=== PATIENT | male | born 1940 | race Caucasian/White ===

== ENCOUNTER 2018-09-09 05:24 | Day surgery (SDC) | payer OTHER ==
[~2018-09-09] VITALS: Ht 175.3 cm; Wt 100.0 kg
[2018-09-09] MEDS ORDERED: LOSA25 PO (06:19)
[2018-09-09] MEDS ORDERED: METF500C PO (06:19)
[2018-09-09] MEDS ORDERED: ASPI81CH PO (06:19)
[2018-09-09] MEDS ORDERED: ISOD40ER PO (06:20)
[2018-09-09] MEDS ORDERED: METO25ER PO (06:20)
[2018-09-09] MEDS ORDERED: CLOP75 PO (06:21)
[2018-09-09] MEDS ORDERED: Nitrostat0.4 MG SL (06:21)
[2018-09-09] MEDS ORDERED: ATOR40TA PO (06:21)
[2018-09-09] MEDS ORDERED: AMLO10 PO (06:21)
== END 2018-09-09 14:15 | disposition home or self-care (01) ==
LOC: MHTC 05:24
PROC: B2111ZZ Fluoroscopy of Multiple Coronary Arteries using Low Osmolar Contrast (ICD-10-PCS; principal; 2018-09-09)
PROC: B2121ZZ Fluoroscopy of Single Coronary Artery Bypass Graft using Low Osmolar Contrast (ICD-10-PCS; principal; 2018-09-09)
DX: I25.118 Atherosclerotic heart disease of native coronary artery with other forms of angina pectoris (principal); I25.718 Atherosclerosis of autologous vein coronary artery bypass graft(s) with other forms of angina pectoris; E78.00 Pure hypercholesterolemia, unspecified; I10 Essential (primary) hypertension
CPT/HCPCS: 93455; 99152; 99153; C1769; C1894; J1644; J2250; J3010; J7030; Q9967

== ENCOUNTER 2019-07-10 16:51 | Observation (INO) | payer OTHER ==
[~2019-07-10] VITALS: Ht 175.3 cm; Wt 92.0 kg
[~2019-07-10 16:51] MED LIST: AMLO10 PO; ATOR40TA PO; Aspir 8181 MG PO; CLOP75 PO; Isosorbide Mono60 MG PO; LOSA25 PO; METO25ER PO; Metformin HCl850 MG PO; Nitrostat0.4 MG SL
[2019-07-10 17:56] LABS: BASOPHILS ABSOLUTE AUTO 0.03 K/mm3 (0.00-0.23); BASOPHILS PERCENT AUTO 0 % (0-2); EOSINOPHILS ABSOLUTE AUTO 0.13 K/mm3 (0.00-0.68); EOSINOPHILS PERCENT AUTO 1 % (0-6); Hematocrit 35.1 % (37.0-53.0); Hemoglobin 11.5 g/dL (13.5-17.5); IMMATURE GRAN ABSOLUTE AUTO 0.04 K/mm3 (0.00-0.10); IMMATURE GRAN PERCENT AUTO 0 % (0-1); LYMPHOCYTES ABSOLUTE AUTO 2.27 K/mm3 (0.84-5.20); LYMPHOCYTES PERCENT AUTO 20 % (21-46); MONOCYTES ABSOLUTE AUTO 0.96 K/mm3 (0.16-1.47); MONOCYTES PERCENT AUTO 8 % (4-13); Mean Corpuscular HGB 30.1 pg (26.0-34.0); Mean Corpuscular HGB Conc 32.8 g/dL (31.5-36.5); Mean Corpuscular Volume 92 fL (80-100); NEUTROPHILS ABSOLUTE AUTO 7.95 K/mm3 (1.96-9.15); NEUTROPHILS PERCENT AUTO 70 % (41-73); Platelet Count 184 K/mm3 (150-400); Red Blood Cell Count 3.82 M/mm3 (4.30-5.90); White Blood Cell Count 11.38 K/mm3 (4.00-11.30)
[2019-07-10] MEDS ORDERED: FISH OIL 1,001000 MG PO (17:56)
[2019-07-10] MEDS ORDERED: OSTEO BI-FLEX1 EACH PO (17:57)
[2019-07-10 18:22] LABS: Troponin I <0.015 ng/mL (0.000-0.040)
[2019-07-10 18:34] LABS: Alanine Aminotransfer (ALT/SGP 13 U/L (12-78); Albumin, Blood 3.1 g/dL (3.4-5.0); Albumin/Globulin Ratio 0.9 (0.8-1.8); Alk Phos 56 U/L (50-136); Anion Gap 7 mmol/L (6-16); Aspartate Aminotrans (AST/SGOT 10 U/L (12-37); Bilirubin, Total 0.6 mg/dL (0.1-1.0); Blood Urea Nitrogen 21 mg/dL (8-24); Bun/Creatinine Ratio 14.9 (12.0-20.0); CO2, Blood 26 mmol/L (21-32); Calcium, Blood 8.6 mg/dL (8.5-10.1); Chloride, Blood 110 mmol/L (98-108); Creatinine, Blood 1.41 mg/dL (0.60-1.20); Globulin, Blood 3.4 g/dL (2.2-4.0); Glomerular Filtration Rate 52 (60-); Glucose, Blood 144 mg/dL (70-99); Potassium, Blood 4.5 mmol/L (3.5-5.5); Sodium, Blood 143 mmol/L (136-145); Total Protein, Blood 6.5 g/dL (6.4-8.2)
[2019-07-10] MEDS ORDERED: THERA1 EACH PO (20:01)
[2019-07-10] MEDS ORDERED: FLAX PO (20:02)
[2019-07-11 01:04] LABS: Hematocrit 34.5 % (37.0-53.0); Hemoglobin 11.4 g/dL (13.5-17.5)
[2019-07-11 01:20] LABS: Bun/Creatinine Ratio 16.4 (12.0-20.0); Calcium, Blood 8.5 mg/dL (8.5-10.1); Creatinine, Blood 1.28 mg/dL (0.60-1.20); Potassium, Blood 4.1 mmol/L (3.5-5.5)
--- NOTE | 2019-07-11 05:31 | NUR ---
END OF SHIFT ADRIÁNAMMERLINE PT TO PCU FROM ED. INDEPENDENT IN ROOM. AXO. DENIES ANY PAIN. STATES FEELING FINE. PT STATES HAVING NOT HAD BM SINCE BLOODY BM INSTANCE THE PREVIOUS NIGHT. VSS. PT PLACED ON PROTONIX GTT AND IV FLUIDS. BOWEL CARE STARTED ORDERED, BOWEL PREP GOLYTELY STARTED @[address] BOB. PT ATTEMPTING TO COMPLETE AT LEAST 80Z AN HOUR STATED ON PACKAGING. CALL LIGHT WITHIN REACH. USES APPROPRIATELY. WILL CONTINUE TO MONITOR PT UNTIL SHIFT CHANGE.
[2019-07-11 07:02] LABS: Hematocrit 39.2 % (37.0-53.0); Hemoglobin 13.4 g/dL (13.5-17.5)
--- NOTE | 2019-07-11 08:00 | NUR ---
pt laying in bed awake a/ox3, pleasant and cooperative with care, is prepping for a scope today, and is most done with it, frequent trips to bathroom. iv infusing ns at 75mls/hr, ordered another liter, also protonix gtt. pt has no complaints at this time, offered a bsc he declined. call light in reach.
--- NOTE | 2019-07-11 12:30 | NUR ---
07/11/19 1230 DanielAlfredo PATIENT DETERMINED TO BE ASA APPROPRIATE FOR PROPOFOL SEDATION PRIOR TO START OF PROCEDURE BY . 3-LEAD EKG REVIEWED WITH PHYSICIAN PRIOR TO START OF PROCEDURE.Patient to ENDO 1History, Chart, Medications and Allergies reviewed before start of procedure.MONITOR INTACT WITH CONTINUOUS PULSE OXIMETRY AND INTERMITTENT BP.O2 VIA N/C INTACT THROUGHOUT SEDATION/PROCEDURE.
--- NOTE | 2019-07-11 14:01 | NUR ---
pt returned to room after egd, he is awake, states he is ready to go home, called his and told her he is ready. she is here. placed orders per Dr. Cordova for f.l. diet. maryam billings, spoke with and she will write for discharge in a bit. call light in reach.
--- NOTE | 2019-07-11 15:41 | NUR ---
pt has been discharged to home, no new medications to call in, will f/u as needed, iv's removed intact. he verbalizes understanding of instructions and has all his belongings. left via wheelchair with compound coating machine offbearer and in attendence.
--- NOTE | 2019-07-11 15:52 | NUR ---
Advance Directive Education attempted. Upon receiving an admit referral for advance directive education, I entered patient's room. Patient said I have no interest and have one already filled out at the [facility] Patient is discharging as I leave room.
== END 2019-07-11 16:28 | disposition home or self-care (01) ==
LOC: ER 16:51 → PCU 16:52
PROVIDERS: Emergency Medicine; Internal Medicine Gastroenterology; ADMIT Internal Medicine
PROC: 0DBK8ZZ Excision of Ascending Colon, Via Natural or Artificial Opening Endoscopic (ICD-10-PCS; principal; 2019-07-11 12:30)
DX: D12.2 Benign neoplasm of ascending colon (principal); D62 Acute posthemorrhagic anemia; K64.8 Other hemorrhoids; K57.30 Diverticulosis of large intestine without perforation or abscess without bleeding; I25.10 Atherosclerotic heart disease of native coronary artery without angina pectoris; I10 Essential (primary) hypertension; E11.9 Type 2 diabetes mellitus without complications; E78.5 Hyperlipidemia, unspecified; Z95.1 Presence of aortocoronary bypass graft; Z87.891 Personal history of nicotine dependence; Z88.8 Allergy status to other drugs, medicaments and biological substances; Z79.899 Other long term (current) drug therapy; Z79.82 Long term (current) use of aspirin; Z79.02 Long term (current) use of antithrombotics/antiplatelets; Z79.84 Long term (current) use of oral hypoglycemic drugs
CPT/HCPCS: 36415; 80048; 80053; 82947; 84484; 85014; 85018; 85025; 88305; 93005; 93010; 96374; 96376; 99285-25; C9113; G0378; J2704; J7030; J7120

== ENCOUNTER 2019-07-13 19:16 | Inpatient (IN) | payer MEDICARE ==
[~2019-07-13] VITALS: Ht 175.3 cm; Wt 96.1 kg
[~2019-07-13 19:16] MED LIST changes: +FISH OIL 1,001000 MG PO; +FLAX PO; +OSTEO BI-FLEX1 EACH PO; +THERA1 EACH PO
[2019-07-13 19:39] LABS: BASOPHILS ABSOLUTE AUTO 0.01 K/mm3 (0.00-0.23); BASOPHILS PERCENT AUTO 0 % (0-2); EOSINOPHILS ABSOLUTE AUTO 0.11 K/mm3 (0.00-0.68); EOSINOPHILS PERCENT AUTO 1 % (0-6); Hemoglobin 8.3 g/dL (13.5-17.5); IMMATURE GRAN ABSOLUTE AUTO 0.05 K/mm3 (0.00-0.10); IMMATURE GRAN PERCENT AUTO 0 % (0-1); LYMPHOCYTES ABSOLUTE AUTO 2.01 K/mm3 (0.84-5.20); LYMPHOCYTES PERCENT AUTO 16 % (21-46); MONOCYTES ABSOLUTE AUTO 0.97 K/mm3 (0.16-1.47); MONOCYTES PERCENT AUTO 8 % (4-13); Mean Corpuscular HGB 31.2 pg (26.0-34.0); Mean Corpuscular HGB Conc 33.2 g/dL (31.5-36.5); Mean Corpuscular Volume 94 fL (80-100); Mean Platelet Volume 11.2 fL (9.1-12.4); NEUTROPHILS ABSOLUTE AUTO 9.33 K/mm3 (1.96-9.15); NEUTROPHILS PERCENT AUTO 75 % (41-73); Platelet Count 190 K/mm3 (150-400); RDW Coefficient Variation 14.2 % (11.7-14.2); RDW Standard Deviation 48.1 fL (35.1-46.3); Red Blood Cell Count 2.66 M/mm3 (4.30-5.90); White Blood Cell Count 12.48 K/mm3 (4.00-11.30)
[2019-07-13 19:54] LABS: Albumin, Blood 3.2 g/dL (3.4-5.0); Bilirubin, Total 0.5 mg/dL (0.1-1.0); Bun/Creatinine Ratio 16.3 (12.0-20.0); Calcium, Blood 8.8 mg/dL (8.5-10.1); Creatinine, Blood 1.84 mg/dL (0.60-1.20); Globulin, Blood 3.3 g/dL (2.2-4.0); Potassium, Blood 4.2 mmol/L (3.5-5.5); Total Protein, Blood 6.5 g/dL (6.4-8.2); Troponin I 0.25 ng/mL (0.000-0.040)
[2019-07-13 20:36] LABS: International Normalized Ratio 1.02; Prothrombin Time Results 10.8 Sec (9.7-11.5)
[2019-07-13] MEDS ORDERED: Fluorouracil10 M1 TOP (20:41)
[2019-07-13 22:11] LABS: Hematocrit 21.3 % (37.0-53.0); Hemoglobin 7.3 g/dL (13.5-17.5)
[2019-07-13 22:26] LABS: Calcium, Blood 8.1 mg/dL (8.5-10.1); Creatinine, Blood 1.58 mg/dL (0.60-1.20); Magnesium, Blood 1.8 mg/dL (1.6-2.4)
--- NOTE | 2019-07-13 23:12 | NUR ---
PT TO ROOM AT 2242. HOSPITALIST AT BEDSIDE. BLOOD STARTED STAT. PT PLEASANT AND CONVERSIVE. PT RATE CP 4/10 UPON ARRIVAL, CURRENTLY 11/24. PT SLIGHTLY HYPOTENSIVE UPON ARRIVAL. BOLUS LR STARTED. ORDER TO HOLD NYTROGLYCERIN FOR NOW.
[2019-07-14 00:18] LABS: Hematocrit 29.5 % (37.0-53.0); Hemoglobin 9.5 g/dL (13.5-17.5); Mean Platelet Volume 11.3 fL (9.1-12.4); Platelet Count 164 K/mm3 (150-400)
[2019-07-14 00:19] LABS: BASOPHILS ABSOLUTE AUTO 0.04 K/mm3 (0.00-0.23); BASOPHILS PERCENT AUTO 0 % (0-2); EOSINOPHILS ABSOLUTE AUTO 0.11 K/mm3 (0.00-0.68); EOSINOPHILS PERCENT AUTO 1 % (0-6); Hematocrit 28.9 % (37.0-53.0); Hemoglobin 9.4 g/dL (13.5-17.5); IMMATURE GRAN ABSOLUTE AUTO 0.31 K/mm3 (0.00-0.10); IMMATURE GRAN PERCENT AUTO 2 % (0-1); LYMPHOCYTES ABSOLUTE AUTO 3.09 K/mm3 (0.84-5.20); LYMPHOCYTES PERCENT AUTO 19 % (21-46); MONOCYTES ABSOLUTE AUTO 1.24 K/mm3 (0.16-1.47); MONOCYTES PERCENT AUTO 8 % (4-13); Mean Corpuscular HGB 30.2 pg (26.0-34.0); Mean Corpuscular HGB Conc 32.5 g/dL (31.5-36.5); Mean Corpuscular Volume 93 fL (80-100); Mean Platelet Volume 11.3 fL (9.1-12.4); NEUTROPHILS ABSOLUTE AUTO 11.65 K/mm3 (1.96-9.15); NEUTROPHILS PERCENT AUTO 71 % (41-73); NRBC ABSOLUTE 0.02 K/mm3 (0.00-0.02); NRBC Auto 0.1 /100 WBC (0.0-0.2); Platelet Count 166 K/mm3 (150-400); RDW Coefficient Variation 14.4 % (11.7-14.2); RDW Standard Deviation 48.4 fL (35.1-46.3); RETICULOCYTE ABSOLUTE 0.0718 M/mm3 (0.0200-0.1100); RETICULOCYTE COUNT PERCENT 2.31 % (0.50-2.50); Red Blood Cell Count 3.11 M/mm3 (4.30-5.90); White Blood Cell Count 16.44 K/mm3 (4.00-11.30)
[2019-07-14 00:34] LABS: International Normalized Ratio 1.08; Prothrombin Time Results 11.4 Sec (9.7-11.5)
[2019-07-14 00:37] LABS: Albumin, Blood 2.7 g/dL (3.4-5.0); Bilirubin, Total 0.5 mg/dL (0.1-1.0); Bun/Creatinine Ratio 16.7 (12.0-20.0); Calcium, Blood 7.9 mg/dL (8.5-10.1); Creatinine, Blood 1.68 mg/dL (0.60-1.20); Globulin, Blood 2.8 g/dL (2.2-4.0); Potassium, Blood 4.2 mmol/L (3.5-5.5); Total Protein, Blood 5.5 g/dL (6.4-8.2)
[2019-07-14 00:44] LABS: PCO2 Arterial 34.3 mmHg (35-45); PO2 Arterial 268 mmHg (80-100); pH Blood Arterial 7.34 (7.35-7.45)
[2019-07-14 00:45] LABS: Source, Urine Catheter
[2019-07-14 00:50] LABS: Bilirubin, Urine Neg (Neg); Blood, Urine 2+ (Neg); Glucose Qualitative, Urine 3+ (Neg); Ketones, Urine 1+ (Neg); Leukocyte Esterase, Urine Neg (Neg); Nitrite, Urine Neg (Neg); Protein, Urine 2+ (Neg); Urobilinogen, Urine NORM (Normal)
[2019-07-14 00:57] LABS: Amorphous Mod ({null, 0-Heavy}); Appearance, Urine Hazy (Clear); Bacteria Rare /hpf; Color, Urine Yellow (P-Yellow); Red Blood Cells, Urine 0-2 /hpf (0-2); Squamous Epithelial Cells Rare /hpf (Few); Transitional Epithelial Cells Few /hpf ({null, 0-Rare}); White Blood Cells, Urine Rare /hpf (0-5)
--- NOTE | 2019-07-14 03:30 | NUR ---
PT ARRIVED TO ICU ROOM 12 FROM [facility] AT APPRX 2242. PT AWAKE A+O, PLEASANT AND JOKING WITH STAFF. PT RATED CP AT THAT TIME 4/10 FROM A PREVIOUS 10. PT DESCRIBED THE PAIN , "JUST A PAIN". [facility] STAFF STATED PT WAS GIVEN HEPARIN 5000u, NS 250mL, VERSED 1mg, AND FENTANYL 75mcg. PT WITH TR BAND IN PLACE WITH STATED 10cc AIR INSTILLED IN CUFF; R GROIN WITH SHEATH STILL IN PLACE. R GROIN SITE FREE OF ANY BRUISING AND/OR DRAINAGE. PT PULSES VERIFIED WITH [facility] STAFF VERIFYING THAT PT WITH NO DETECTABLE PULSE TO LEFT WRIST R/T HX OF VESSEL GRAFTING. HOSPITALIST AT BEDSIDE UPON PT ARRIVAL AND SPOKE WITH PT EXTENSIVELY ABOUT CURRENT SITUATION AND POSSIBLE TRANSFER OUT TO ANOTHER FACILITY FOR GI CARE. PT AT BEDSIDE AT THAT TIME. PT ARRIVED WITH NTG gtt INFUSING AT 30mcg/min. HOSPITALIST ORDERED THAT TWO UNITS OF BLOOD BE GIVEN "STAT" AND TO BEGIN LR FLUID BOLUS. MAG SULFATE STARTED AT THAT TIME. PT NEEDING OTHER IV SITE-DONIS NEUROPSYCHIATRIST AND JAE RN ATTEMPTED IV SITE. AT APPROXIMATELY 2318, PT BECAME LETHARGIC AND STATED HE DIDN'T FEEL VERY WELL. PT WENT INTO VFIB WITH NO PULSE. CPR STARTED. SEE CODE SHEET FOR INFORMATION DURING CODE.
--- NOTE | 2019-07-14 03:44 | NUR ---
PT RETURNED FROM CT AT 0144. PT TAKEN TO CT WITH TWO RNS AND RT AT BEDSIDE AND ON DIESEL INSTRUCTOR. PT TOLERATED WELL.
--- NOTE | 2019-07-14 03:45 | NUR ---
RIGHT GROIN SITE SHEAT REMOVED AT 0225. USING ASCEPTIC TECHNIQUE, RIGHT FEMORAL PULSE DETECTED, 4cc BLOOD ASPIRATED INTO ATTACHED SYRINGE, PRESSURE APPLIED APPRX 2cm ABOVE SHEATH ENTRY SITE, SHEATH PULLED ON PT EXPIRATION. PRESSURE HELD FOR 20 MINUTES. NO BRUISING, SWELLING, OR DRAINAGE NOTED. ESSIE DRESSING AND TEGADERM APPLIED IN A PRESSURE-DRESSING FASION AT 0245. SITE ASSESSED FREQUENTLY AND CONTINUES SAME WITH NO BRUISING, SWELLING, OR DRAINAGE NOTED. TR BAND ASSESSED AT 0247 AND HAD 5cc REMAINING IN CUFF. 1cc REMOVED, TR BAND AND ARM BOARD REMAIN IN PLACE.
--- NOTE | 2019-07-14 03:51 | NUR ---
PT'S SPOUSE, JANKI, CONSOLED AND UPDATED DURING CODE BY ANGELIA KIMBALL. JANKI REMAINS AT BEDSIDE AND HAS BEEN FREQUENTLY UPDATED WITH ALL QUESTIONS ANSWERED.
--- NOTE | 2019-07-14 03:52 | NUR ---
CURRENT INFUSIONS: AMIODARONE AT THE INITIAL 1mg/min; PROPOFOL 55mcg/kg/min; 4TH unit OF PRBC; PROTONIX gtt; AND NS MAINTENANCE AT 125mL/hr.
[2019-07-14 04:45] LABS: PCO2 Arterial 36.3 mmHg (35-45); PO2 Arterial 54.6 mmHg (80-100); pH Blood Arterial 7.39 (7.35-7.45)
[2019-07-14 04:58] LABS: Hemoglobin 10.1 g/dL (13.5-17.5)
[2019-07-14 05:17] LABS: Albumin, Blood 2.7 g/dL (3.4-5.0); Bilirubin, Total 1.1 mg/dL (0.1-1.0); Bun/Creatinine Ratio 16.9 (12.0-20.0); Calcium, Blood 8.1 mg/dL (8.5-10.1); Creatinine, Blood 1.54 mg/dL (0.60-1.20); Globulin, Blood 2.6 g/dL (2.2-4.0); Magnesium, Blood 2.2 mg/dL (1.6-2.4); Total Protein, Blood 5.3 g/dL (6.4-8.2)
--- NOTE | 2019-07-14 05:20 | NUR ---
TR BAND REMOVED. R RADIAL SITE C/ NO BRUISING, SWELLING, OR DRAINAGE NOTED. TEGADERM DRESSING DCI. R GROIN SITE REMAINS WITHOUT BRUISING, SWELLING, OR DRAINAGE. VENT SETTING: A/C 16, Vt 500, PEEP 5.0, FiO2 65% CHANGED TO 70%.
--- NOTE | 2019-07-14 07:23 | NUR ---
ASSUMED CARE REPORT FROM BENNY Berrios RN. INTUBATED, RESTRAINED PATIENT SEDATED ON 65 MCG/KG/MIN PROPOFOL. TITRATED TO 50 MCG/KG/MIN. 8.0 ETT 26 ATLAC 16 Vt 500 PEEP 5 FIO2 70% RIGHT GROIN SOFT TO PALP, NO SIGN OF BLEEDING OR HEMATOMA. LEFT FEMORAL CL. RIGHT RADIAL SITE. OCCASIONAL ECTOPY NOTED ON MONITOR.
--- NOTE | 2019-07-14 07:58 | NUR ---
DR. YOU CALLED TO CHECK ON PATIENT. ORDERS WILL FOLLOW
--- NOTE | 2019-07-14 08:26 | NUR ---
PROPOFOL TITRATED TO 40 MCG/KG/MIN. RIGHT RADIAL SITE IS CLEAR, NO SIGN OF BLEEDING OR HEMATOMA
[2019-07-14 09:11] LABS: Hematocrit 30.6 % (37.0-53.0); Hemoglobin 10.4 g/dL (13.5-17.5)
--- NOTE | 2019-07-14 09:26 | NUR ---
VISITS DR. BOSWELL IN. ORDERS TO KEEP H BETWEEN 9.5-10. PRN H/H, MG & K FOR INCREASED ECTOPY. DR. SCHWARTZ IN AND DR. LEON IN.
--- NOTE | 2019-07-14 09:29 | NUR ---
FAMILY VISIT SON AND GRANDSON AT BEDSIDE
--- NOTE | 2019-07-14 09:38 | NUR ---
Echocardiogram completed.
--- NOTE | 2019-07-14 10:06 | NUR ---
BLOOD DRAWN FOR NUC MED STUDY. WILL TRANSPORT TO NUC MED WITH [facility] 20 MIN AFTER THE DRAW
--- NOTE | 2019-07-14 10:26 | NUR ---
CXR REPEATED FOR ETT PLACEMENT. AT [facility] AT THIS TIME FOR RED TAG STUDY. ANTICIPATED TIME IS 1 HOUR.
--- NOTE | 2019-07-14 10:52 | NUR ---
Met briefly with for supportive visit. Review of anemia care and our supportive role in symptom management and care planning. is very fatigued cant sleep and fearfull.
--- NOTE | 2019-07-14 12:07 | NUR ---
RETURNED FROM [facility]. DR. MERA UPDATING FAMILY
--- NOTE | 2019-07-14 12:08 | NUR ---
ORDER TO ADVANCE ETT 3CM AND OGT 5CM
[2019-07-14 13:13] LABS: Hematocrit 30.8 % (37.0-53.0); Hemoglobin 10.4 g/dL (13.5-17.5)
--- NOTE | 2019-07-14 13:20 | NUR ---
DR MERA CHANGED PEEP TO 7 AND FIO2 TO 50%
[2019-07-14 13:30] LABS: Calcium, Blood 8.3 mg/dL (8.5-10.1); Creatinine, Blood 1.53 mg/dL (0.60-1.20); Potassium, Blood 3.9 mmol/L (3.5-5.5)
[2019-07-14 17:25] LABS: Hemoglobin 10.4 g/dL (13.5-17.5)
--- NOTE | 2019-07-14 17:28 | NUR ---
MD VISIT DR. YOU IN. NO SIGN OF BLEEDING.
--- NOTE | 2019-07-14 17:38 | NUR ---
AT BEDSIDE UPDATED BY DR. YOU. H/H REMAINS STABLE. PROPOFOL AT 40 MCG/KG/MIN. AMIODARONE CONTINUES UNTIL 29. TURNED Q2, ORAL CARE Q4. HEELS FLOATED
--- NOTE | 2019-07-14 18:17 | NUR ---
OGT SHOWING PINKWITH STOMACH CONTENTS. LIS TURNED OF PER DR. OYU.
--- NOTE | 2019-07-14 19:00 | NUR ---
Lamar of Care: Patient intubated/sedated. Ventilator to AC-16/500/7/40%, O2-95%, VSS, tolerating ventilator without difficulty. Sedated with propofol at 40mcg/kg/min, appears calm and comfortable, responds to noxious stimuli. Central line to lt femoral vein patent and intact, infusing medications without difficulty. Peripheral IV's x2 to bilateral AC's patent and intact, saline locked at this time. Arterial access sites to rt radial, and rt femoral, both sites wnl, no s/s of active bleeding/hematoma. Amiodarone gtt infusing at 0.5mg/hr, heart rhythm shows NSR in the 60's-70's. Enrique cath patent and intact, draining clear yellow urine. Temp-probe Enrique, shows temp of 101.3, ice pack applied at this time, plan to ask Dr. Mora for prn tylenol PT. Will continue to monitor for pain, safety, comfort.
--- NOTE | 2019-07-14 19:25 | NUR ---
NOTIFIED DR. MERA OF FEVER 101.3. STAT BLOOD CULTURES AND 1 GRAM CEFTRIAXONE
--- NOTE | 2019-07-14 19:32 | NUR ---
REPORT TO REHANA FLOOD
[2019-07-14 21:35] LABS: Hematocrit 30.9 % (37.0-53.0); Hemoglobin 10.6 g/dL (13.5-17.5)
[2019-07-15 02:38] LABS: Hemoglobin 10.6 g/dL (13.5-17.5)
[2019-07-15 03:54] LABS: BASOPHILS ABSOLUTE AUTO 0.03 K/mm3 (0.00-0.23); BASOPHILS PERCENT AUTO 0 % (0-2); EOSINOPHILS ABSOLUTE AUTO 0.11 K/mm3 (0.00-0.68); EOSINOPHILS PERCENT AUTO 1 % (0-6); Hematocrit 32.4 % (37.0-53.0); Hemoglobin 10.8 g/dL (13.5-17.5); IMMATURE GRAN ABSOLUTE AUTO 0.08 K/mm3 (0.00-0.10); IMMATURE GRAN PERCENT AUTO 0 % (0-1); LYMPHOCYTES ABSOLUTE AUTO 1.25 K/mm3 (0.84-5.20); LYMPHOCYTES PERCENT AUTO 7 % (21-46); MONOCYTES ABSOLUTE AUTO 2.12 K/mm3 (0.16-1.47); MONOCYTES PERCENT AUTO 12 % (4-13); Mean Corpuscular HGB 30.7 pg (26.0-34.0); Mean Corpuscular HGB Conc 33.3 g/dL (31.5-36.5); Mean Corpuscular Volume 92 fL (80-100); Mean Platelet Volume 11.4 fL (9.1-12.4); NEUTROPHILS ABSOLUTE AUTO 14.88 K/mm3 (1.96-9.15); NEUTROPHILS PERCENT AUTO 81 % (41-73); Platelet Count 134 K/mm3 (150-400); RDW Coefficient Variation 15.6 % (11.7-14.2); RDW Standard Deviation 51.3 fL (35.1-46.3); Red Blood Cell Count 3.52 M/mm3 (4.30-5.90); White Blood Cell Count 18.47 K/mm3 (4.00-11.30)
[2019-07-15 04:45] LABS: Bun/Creatinine Ratio 12.8 (12.0-20.0); Calcium, Blood 8.3 mg/dL (8.5-10.1); Creatinine, Blood 1.48 mg/dL (0.60-1.20); Magnesium, Blood 1.8 mg/dL (1.6-2.4); Potassium, Blood 3.9 mmol/L (3.5-5.5)
--- NOTE | 2019-07-15 06:20 | NUR ---
Shift Summary: Remains intubated/sedated, responding to noxious stimuli. Ventilator to AC-14/500/7/40-65%. FiO2 increased throughout shift r/t O2-87-89%, some improvement seen after repositioning and suctioning of ETT. Moderate amount of thick brown/blood tinged sputum noted. No spontaneous breathing trial this shift r/t increased FiO2 demands and increased respiratory rate (30's) when sedation decreased. X3 doses of prn fentanyl given for s/s of pain, with good effect noted. At appros 0200hr, patient began having frequent 3-4 beat runs of V-tach, at that time 24hr Amiodarone gtt had completed for approx 2hr. Call placed to Dr. Massey, received orders to resume Amiodarone gtt at 0.5mg/hr, and obtain STAT H+H. Repeat H+H showed increased from endy values (10.4-10.6), and no s/s of active bleeding. Occasional single PVC's noted throughout remainder of shift. Rt radial and rt femoral access sites remain WNL, no s/s of bleeding/hematoma noted. Lt femoral central line remains patent and intact. Enrique cath remains patent and intact. Appears calm and comfortable at this time, will continue to monitor until report to day shift RN.
--- NOTE | 2019-07-15 07:13 | NUR ---
ASSUMED CARE REPORT FROM REHANA FLOOD. PT CONTINUES VENTILATED AC 16 Vt 500 PEEP 7 FI02 55% AMIODARONE GTT CONTINUES AT 0.5 MG MIN PROPOFOL 55 MCG/KG/MIN FEVER HAS ABATED TO 99.0 IN ROOM ALL NIGHT
--- NOTE | 2019-07-15 08:40 | NUR ---
MD VISITS DR. LEON AND DR. MERA BOTH IN
--- NOTE | 2019-07-15 09:38 | NUR ---
SHORT SEDATION VACATION. WAS ABLE TO FOLLOW COMMANDS AND NODDED YES TO PAIN QUERY. BIGEMINY AND TRIGEMINY NOTED ON MONITOR. AMIDODARONE REMAINS AT 0.5 RR CLIMBED TO 30'S AND BIOX DROPPED TO 87. PROPOFOL BACK ON AND FENTANYL [address] MERA CHANGED PEEP TO 8. FI02 AT 60% ORDERS FOR BIOX TO REMAIN 90 AND ABOVE.
--- NOTE | 2019-07-15 10:38 | NUR ---
MD VISIT DR. BOSWELL IN. ORDER FOR METOPROLOL 12.5 PT BID
--- NOTE | 2019-07-15 13:05 | NUR ---
PATIENT WENT INTO FREQUENT BIGEMINY. BP DROPPED SUDDENLY TO 56/35(41), DR. MERA RESPONDED TO ROOM, BOLUS STARTED, CALLED DR. BOSWELL REPEAT BP 110/55 (77). NO NEW ORDERS. BOLUS STOPPED. DR. MERA ORDERED 1 GRAM MG AND 30 MEQ POTASSIUM.
--- NOTE | 2019-07-15 16:09 | NUR ---
VITAL HP TF STARTED AT 25 ML/HR 30 ML FLUSH Q4HRS
--- NOTE | 2019-07-15 16:58 | NUR ---
CONSULTED DR. MERA RE: REDUCED URINE OUTPUT. LR 1L AT 100 ML/HR ORDERED
--- NOTE | 2019-07-15 17:33 | NUR ---
LESS ECTOPY AT THIS TIME. BIOX 96% WITH FIO2 AT 60% PEEP 8. NSR WITH ST DEPRESSION ON MONITOR. FAMILY AT BEDSIDE. ON PROPOFOL AT 40 MCG/KG/MIN. AMIODARONE AT 0.5 MG/MIN. WILL START ON PT DOSE THIS EVENING. WILL REPORT TO ONCOMING SHIFT.
--- NOTE | 2019-07-15 19:19 | NUR ---
BEDSIDE REPORT GIVEN TO EVELIN KIMBALL.
--- NOTE | 2019-07-15 20:57 | NUR ---
PT INTUBATED AND SEDATED. ON PROPOFOL FOR SEDATION. ON AMIODORONE GTT FOR ECTOPY. PT WILL RAISE EYEBROWS WHEN YOU TALK TO HIM. TOLERATING TUBE FEED AT 15ML/HR, LESS THAN 10ML RESIDUAL REFED. SEE ASSESSMENT. FAMILY AT BEDSIDE, NO REQUESTS.
[2019-07-16 03:24] LABS: BASOPHILS ABSOLUTE AUTO 0.02 K/mm3 (0.00-0.23); BASOPHILS PERCENT AUTO 0 % (0-2); EOSINOPHILS ABSOLUTE AUTO 0.16 K/mm3 (0.00-0.68); EOSINOPHILS PERCENT AUTO 1 % (0-6); Hematocrit 28.5 % (37.0-53.0); Hemoglobin 9.5 g/dL (13.5-17.5); IMMATURE GRAN ABSOLUTE AUTO 0.08 K/mm3 (0.00-0.10); IMMATURE GRAN PERCENT AUTO 1 % (0-1); LYMPHOCYTES ABSOLUTE AUTO 1.27 K/mm3 (0.84-5.20); LYMPHOCYTES PERCENT AUTO 9 % (21-46); MONOCYTES ABSOLUTE AUTO 1.68 K/mm3 (0.16-1.47); MONOCYTES PERCENT AUTO 11 % (4-13); Mean Corpuscular HGB 30.7 pg (26.0-34.0); Mean Corpuscular HGB Conc 33.3 g/dL (31.5-36.5); Mean Corpuscular Volume 92 fL (80-100); Mean Platelet Volume 11.5 fL (9.1-12.4); NEUTROPHILS ABSOLUTE AUTO 11.54 K/mm3 (1.96-9.15); NEUTROPHILS PERCENT AUTO 78 % (41-73); Platelet Count 124 K/mm3 (150-400); RDW Coefficient Variation 15.4 % (11.7-14.2); RDW Standard Deviation 50.7 fL (35.1-46.3); Red Blood Cell Count 3.09 M/mm3 (4.30-5.90); White Blood Cell Count 14.75 K/mm3 (4.00-11.30)
[2019-07-16 03:42] LABS: Bun/Creatinine Ratio 16.4 (12.0-20.0); Calcium, Blood 7.4 mg/dL (8.5-10.1); Creatinine, Blood 1.4 mg/dL (0.60-1.20); Magnesium, Blood 1.9 mg/dL (1.6-2.4); Phosphorus, Blood 3.2 mg/dL (2.5-4.9); Potassium, Blood 3.7 mmol/L (3.5-5.5)
--- NOTE | 2019-07-16 04:21 | NUR ---
EVERETT WAS LEAKING. REPLACED WITH 16F COUDE EVERETT. HAS GOOD URINE RETURN.
--- NOTE | 2019-07-16 06:15 | NUR ---
SUMMARY PT INTUBATED AND SEDATED. LIFTED SEDATION THIS AM SO COULD SEE HIM FOLLOWING COMMANDS AND TRACKING. AMIODORONE GTT WAS D/C'D. PO AMIODORONE WAS STARTED LAST NIGHT. MINIMAL ECTOPY DURING THE NIGHT. TOLERATING TUBE FEED. HAS HAD LESS THAN 10ML RESIDUAL Q4 HR. REPLACED EVERETT DUE TO IT LEAKING. PT HAD SIGNIFICANT AMT LEAK ON TO BEDDING. NO SIGN OF DISTRESS.
--- NOTE | 2019-07-16 08:15 | NUR ---
INITIAL ASSESSMENT PATIENT INTUBATED AND SEDATED UPON ENTERING ROOM. PATIENT RESPONDS TO PAINFUL STIMULI/ ORAL CARE WITH FACIAL GRIMACING. PATIENT IS NOT MOVING ANY EXTREMITIES AT THIS TIME. NO SIGNS OF PAIN NOTED. PATIENT AFEBRILE. PATIENT SATTING 90% AND GREATER ON VENT SETTINGS OF AC 16, TV 500, PEEP 8, 55% FIO2. LUNGS CLEAR THROUGHOUT TO AUSCULTATION. SMALL AMOUNT OF THICK, YEUNG/ BLOODY SPUTUM BEING SUCTIONED FROM ETT. PATIENT IN SR, HR IN THE 60S. BP STABLE. AMIO PO SCHEDULED. PULSES FAINT. GENERALIZED, NONPITTING EDEMA NOTED. SCDS IN PLACE. ABDOMEN MILDLY DISTENDED, SOFT, DOESN'T APPEAR TENDER, WITH HYPOACTIVE BS NOTED. OG IN PLACE. VITAL HIGH PROTEIN TF INFUSING AT GOAL RATE OF 15 MLS/ HOUR WITH 30 ML WATER FLUSH Q4H. RESIDUAL OF 10 MLS OBTAINED AND REINSTILLED THIS AM. EVERETT DRAINING NICHOL, GREEN COLORED URINE. SCATTERED BRUISES NOTED TO UDAY. R RADIAL AND R FEMORAL MEAT GRADER ACCESS SITES WNL- NO BLEEDING, BRUISING, OR HEMATOMA NOTED. PROPOFOL INFUSING AT 30 MCG/ KG/ MINUTE. BED LOW, CALL LIGHT IN REACH. AT BEDSIDE. WILL CONTINUE TO MONITOR PATIENT FREQUENTLY THROUGHOUT SHIFT.
--- NOTE | 2019-07-16 09:25 | NUR ---
SPOKE TO DR. EDE FLETCHER AND UPDATED ON PATIENT STATUS. INFORMED THAT HEMOGLOBIN 9.5 THIS AM. INFORMED THAT OUTPUT BETTER DURING NIGHT THAN APPEARS ON I AND O BECAUSE PATIENT EVERETT LEAKED DURING THE NIGHT PER GLASS BLOWING INSTRUCTOR NURSE. INFORMED THAT IN ROOM AND WOULD LIKE UPDATE ON PNA, ETC. ORDERS RECEIVED.
--- NOTE | 2019-07-16 12:15 | NUR ---
PATIENT RESTING QUIETLY IN BED. PATIENT REMAINS INTUBATED AND SEDATED. NO SIGNS OF PAIN NOTED AT THIS TIME. PATIENT AFEBRILE. PATIENT RESPONDING TO VERBAL STIMULI. PATIENT FOLLOWING SIMPLE COMMANDS. PATIENT WEAK BUT ABLE TO MOVE ALL EXTREMITIES. PATIENT ON VENT SETTINGS AC 16, TV 500, PEEP 8, FIO2 45%. RESIDUAL OF ZERO FROM OG. FAMILY AT BEDSIDE. NO OTHER ACUTE CHANGES TO NOTE ON AT THIS TIME.
--- NOTE | 2019-07-16 17:15 | NUR ---
PATIENT RESTING QUIETLY IN BED. PATIENT GIVEN PRN FENTANYL SHORT TIME AGO- NO SIGNS OF PAIN AT THIS TIME. PATIENT PLACED ON SEDATION VACATION SHORT TIME AGO. PATIENT BECAME NONSYCHRONOUS WITH VENT SO WAS PLACED ON PRESSURE SUPPORT 8/8, 45% FIO2. PATIENT TOLERATED WEAN AND PS WELL. INFORMED DR. MERA. AN HOUR LATER PATIENT PLACED BACK ON SEDATION AND AC SETTINGS PER DR. MERA. PATIENT WAS ABLE TO FOLLOW SIMPLE COMMANDS AND COMMUNICATE WITH FAMILY AROUND HIM. PATIENT REMAINS AFEBRILE. PATIENT BACK ON AC 16, TV 500, PEEP 8, AND 45% FIO2. PROPOFOL AT 45 MCG/ KG/ MINUTE CURRENTLY. PATIENT IN SR, HR IN THE 70S. BP STABLE. TF RESIDUAL OF ZERO. TF INCREASED TO NEW GOAL RATE OF 30 MLS/ HOUR. NO OTHER ACUTE CHANGES TO NOTE ON AT THIS TIME. WILL CONTINUE TO MONITOR.
[2019-07-16 17:20] LABS: Hematocrit 29.3 % (37.0-53.0); Hemoglobin 9.8 g/dL (13.5-17.5)
--- NOTE | 2019-07-16 18:41 | NUR ---
SHIFT SUMMARY PATIENT REMAINED INTUBATED AND SEDATED T/O SHIFT. PATIENT DID HAVE AN HOUR LONG SEDATION VACATION WELL WEAN ON PS 8/8 AT 45% FIO2. PATIENT TOLERATED WELL. PLACED BACK ON SEDATION AND AC TO GIVE REST PER DR. MERA. FAMILY WAS HAPPY TO BE ABLE TO COMMUNICATE WITH PATIENT WHILE HE WAS OFF OF SEDATION. PATIENT FOLLOWED SIMPLE COMMANDS AND WAS ABLE TO WEAKLY MOVE ALL EXTREMITIES. PATIENT GIVEN PRN FENTANYL FOR COMPLAINTS OF PAIN. PATIENT REMAINED AFEBRILE. PATIENT CURRENTLY BACK ON AC SETTINGS OF AC 16, TV 500, PEEP 8 AND 45% FIO2 AND REMAINS SATTING 90% AND GREATER. SMALL AMOUNT OF THICK, YEUNG/ BLOODY SECRETIONS FROM ETT. PATIENT REMAINED IN SR, HR 60S TO 80S. BP STABLE. PULSES REMAIN FAINT. PATIENT CONTINUES TO HAVE GENERALIZED, NONPITTING EDEMA. PATIENT DID NOT HAVE BM THIS SHIFT. TF INCREASED TO NEW GOAL RATE OF 30 MLS/ HOUR. PATIENT REMAINS TOLERATING WELL. RESIDUALS 0 TO 10 ML DURING SHIFT. EVERETT DRAINED ADEQUATE AMOUNT OF NICHOL/ GREEN COLORED URINE. NO CHANGE TO SKIN. PATIENT REPOSITIONED T/O SHIFT. PROPOFOL CURRENTLY INFUSING AT 30 MCG/ KG/ MINUTE. BED LOW, CALL LIGHT IN REACH. NO SIGNS OF PAIN OR DISCOMFORT NOTED AT THIS TIME. AT BEDSIDE. REPORT WILL BE GIVEN TO ONCOMING CONSTRUCTION PROJECT MGR NURSE SHORTLY.
--- NOTE | 2019-07-16 20:00 | NUR ---
PT INTUBATED AND SEDATED. WILL GRIMACE TO PAINFUL STIMULI. ON PROPOFOL FOR SEDATION AT 30MCG/KG/MIN. TOLERATING TUBE FEED WITH 30ML RESIDUAL. FAMILY AT BEDSIDE.
[2019-07-16 23:20] LABS: Stool Occult Blood Guaiac 1 Neg (Neg)
[2019-07-17 03:14] LABS: BASOPHILS ABSOLUTE AUTO 0.02 K/mm3 (0.00-0.23); BASOPHILS PERCENT AUTO 0 % (0-2); EOSINOPHILS ABSOLUTE AUTO 0.19 K/mm3 (0.00-0.68); EOSINOPHILS PERCENT AUTO 2 % (0-6); Hematocrit 27.1 % (37.0-53.0); Hemoglobin 9.2 g/dL (13.5-17.5); IMMATURE GRAN ABSOLUTE AUTO 0.05 K/mm3 (0.00-0.10); IMMATURE GRAN PERCENT AUTO 0 % (0-1); LYMPHOCYTES ABSOLUTE AUTO 1.16 K/mm3 (0.84-5.20); LYMPHOCYTES PERCENT AUTO 9 % (21-46); MONOCYTES ABSOLUTE AUTO 1.39 K/mm3 (0.16-1.47); MONOCYTES PERCENT AUTO 11 % (4-13); Mean Corpuscular HGB 31.2 pg (26.0-34.0); Mean Corpuscular HGB Conc 33.9 g/dL (31.5-36.5); Mean Corpuscular Volume 92 fL (80-100); Mean Platelet Volume 11.1 fL (9.1-12.4); NEUTROPHILS PERCENT AUTO 78 % (41-73); Platelet Count 137 K/mm3 (150-400); RDW Coefficient Variation 15.5 % (11.7-14.2); RDW Standard Deviation 50.8 fL (35.1-46.3); Red Blood Cell Count 2.95 M/mm3 (4.30-5.90); White Blood Cell Count 12.61 K/mm3 (4.00-11.30)
[2019-07-17 03:27] LABS: Bun/Creatinine Ratio 20.1 (12.0-20.0); Calcium, Blood 7.7 mg/dL (8.5-10.1); Creatinine, Blood 1.54 mg/dL (0.60-1.20); Magnesium, Blood 2.1 mg/dL (1.6-2.4); Potassium, Blood 3.3 mmol/L (3.5-5.5)
--- NOTE | 2019-07-17 06:31 | NUR ---
SUMMARY PT INTUBATED AND SEDATED. FOLLOWING COMMANDS DURING SBT WHEN OFF SEDATION. DURING SBT PT BECAME ANXIOUS AND TACHYPNEIC AND THEREFORE WAS SWITCHED BACK TO AC AFTER ABOUT 45 MINS. AFTER SWITCHING BACK TO AC PT BEGAN COUGHING A LOT AND HAD LARGE AMT OF YEUNG THICK SECRETIONS. WAS DIFFICULT TO GET COMFORTABLE AGAIN. GAVE FENTANYL IN CONJUNCTION WITH PROPOFOL AT 40MCG/KG/MIN. PT EVENTUALLY CALMED DOWN BUT HAD TO INCREASE FIO2 TO 65% FROM 45% DUE TO SPO2 87%. NO ECTOPY TONIGHT. TOLERATED TUBE FEED ALL NIGHT WITH 20-30ML RESIDUAL Q 4HR.
--- NOTE | 2019-07-17 09:30 | NUR ---
CARE ASSUMED CARE AMD RE[PRT ASSUMED FROM EVELIN KIMBALL. PT INTUBATED ON VENT AC 16/50/PEEP 8/65%. ETT SECURED. PROPOFOL GTT INFUSING AT 40 MCG/KG. NO S/S PAIN AT THIS TIME. TOLERATING TF AT GOAL RATE WITH MINIMAL RESIDUAL. NSR, HR 60-70S. BUE RESTRAINED. AT BEDSIDE. EVERETT CATH SECURED. ABDOMEN SOFT. LUNG SOUNDS CLEAR AT THIS TIME. PT TO RECEIVE 1 UNIT PRBCS TO MAINTAIN HGB ABOVE 9.5. MODERATE AMOUNT OF THICK, YELLOW SECRETIONS FROM ETT. WILL CONTINUE TO MONITOR.
--- NOTE | 2019-07-17 12:05 | NUR ---
REASSESSMENT PT REMAINS INTUBATED AND SEDATED. VENT AC 16, 500, PEEP 8, FIO2 45%. BUE RESTRAINED. PT HAS HAD 2 SEPERATE SEDATION VACATIONS THIS AM AND HAS BEEN ABLE TO FOLLOW COMMANDS APPROPRIATELY AND OPENS EYES SPONTANEOUSLY. FAMILY AT BEDSIDE AND TALKING TO PT DURING SECOND SEDATION VACATION. FENT GIVEN FOR PAIN. SEDATION NOW BACK ON; PROPOFOL GTT INFUSING AT 40 MCG/KG. TF INFUSING AT 30 ML/HR PER ORDER WITH MINIMAL RESIDUALS. NSR, HR 60S. BP WNL. LASIX GIVEN FOLLOWING 1 UNIT PRBCS. LUNG SOUNDS REMAIN CLEAR. EVERETT CATH SECURED AND PATENT. FAMILY UPDATED ON STATUS. WILL CONTINUE TO MONITOR.
[2019-07-17 16:24] LABS: Hematocrit 30.2 % (37.0-53.0); Hemoglobin 9.9 g/dL (13.5-17.5)
[2019-07-17 16:40] LABS: Phosphorus, Blood 4.7 mg/dL (2.5-4.9); Potassium, Blood 3.3 mmol/L (3.5-5.5)
--- NOTE | 2019-07-17 18:20 | NUR ---
SHIFT SUMMARY PT REMAINED INTUBATED AND SEDATED DURING SHIFT WITH THE EXCEPTION OF 2 SEDATION VACATIONS WHICH HE TOLERATED WELL. DOES RESPOND TO COMMANDS APPROPRIATELY AND SPONTANEOUSLY OPENS EYES WHEN AWAKE. HOB ELEVATED AND PT TURNED Q2H. BUE RESTRAINED DURING SHIFT. POTASSIUM PHOSPHATE REPLACED THEN ADDITIONAL POTASSIUM 40 MEQ GIVEN THROUGH TUBE. 1 UNITE PRBCS GIVEN TODAY, FOLLOWED BY LASIX 40 MG IVP. FIO2 DECREASED FROM 65%-35%. HGB INCREAED TO 9.9 AFTER 1 UNIT PRBCS. TOLERATED TF AT GOAL RATE WITH LOW RESIDUALS. FENTANYL 50 MCG IVP GIVEN NEEDED. PROPOFOL GTT INFUSING AT 40 MCG/KG. WILL GIVE BEDSIDE, HANDOFF REPORT TO NOC RN.
--- NOTE | 2019-07-17 19:45 | NUR ---
ASSESSMENT/ASSUMED CARE PT INTUBATED AND MECH VENTED. SEDATED WITH PROPOFOL AT 40 MCQ/KG/MIN. PT OPENS EYES BRIEFLY TO VERBAL STIMULI. BILAT SOFT WRIST RESTRAINTS ON TO PREVENT SELF EXTUBATION. LUNGS CLEAR WITH VENT SETTINGS AC 16 TV 500 PEEP 8 FIO2 35%. SUCTIONED SMALL AMT CREAM COLORED SECRECTIONS VIA ET TUBE AND LARGE AMT CLEAR SECRECTIONS VIA MOUTH. HEART RATE REGULAR. 60'S. BP STABLE. EDEMA NOTED TO BILAT WRISTS. ELEVATED ON PILLOWS. BT+ HYPOACTIVE ABD FLAT AND SOFT. OG WITH TUBE FEED VITAL HP AT GOAL RATE OF 30 ML/HR WITH 30 ML WATER Q4HR. RESIDUAL 2 ML REFED. IV 18G TO RIGHT FOREARM, SITE CLEAR. IV 20G TO LEFT FOREARM, SITE CLEAR. EVERETT CATH PATENT DRAINING CLEAR YELLOW URINE. REPOSITIONED TO LEFT WITH HOB UP. FAMILY AT BEDSIDE, QUESTIONS ANSWERED.
--- NOTE | 2019-07-18 00:04 | NUR ---
REASSESSMENT PT CONT INTUBATED AND ON MECH VENT. LUNGS COARSE UNTIL SUTIONED MOD AMT VIA ET TUBE THAN LUNGS CLEAR. VENT SETTINGS AC 16 TV 500 PEEP 8 FIO2 45%. PT WITH HARSH COUGHING, MED WITH FENTANYL 25 MCQ. HEART RATE REGULAR, BP STABLE. BLOOD GLUCOSE 137, NO INSULIN GIVEN. PT REPOSITIONED TO BACK WITH HOB UP. RESIDUAL CHECK 4 ML REFED. SLEEPING IN ROOM.
--- NOTE | 2019-07-18 02:07 | NUR ---
PAIN MEDS PT REPOSITIONED TO LEFT WITH HOB UP. GRIMACING NOTED, RESP RATE UP TO 25-26. MED WITH FENTANYL 25 MCQ. PROPOFOL DECREASED TO 35 MCQ/KG/MIN FOR WEANING IN AM
[2019-07-18 03:10] LABS: BASOPHILS ABSOLUTE AUTO 0.02 K/mm3 (0.00-0.23); BASOPHILS PERCENT AUTO 0 % (0-2); EOSINOPHILS ABSOLUTE AUTO 0.21 K/mm3 (0.00-0.68); EOSINOPHILS PERCENT AUTO 2 % (0-6); Hematocrit 28.7 % (37.0-53.0); Hemoglobin 9.7 g/dL (13.5-17.5); IMMATURE GRAN ABSOLUTE AUTO 0.05 K/mm3 (0.00-0.10); IMMATURE GRAN PERCENT AUTO 1 % (0-1); LYMPHOCYTES ABSOLUTE AUTO 1.12 K/mm3 (0.84-5.20); LYMPHOCYTES PERCENT AUTO 11 % (21-46); MONOCYTES ABSOLUTE AUTO 1.27 K/mm3 (0.16-1.47); MONOCYTES PERCENT AUTO 12 % (4-13); Mean Corpuscular HGB 30.4 pg (26.0-34.0); Mean Corpuscular HGB Conc 33.8 g/dL (31.5-36.5); Mean Corpuscular Volume 90 fL (80-100); Mean Platelet Volume 11.4 fL (9.1-12.4); NEUTROPHILS ABSOLUTE AUTO 7.82 K/mm3 (1.96-9.15); NEUTROPHILS PERCENT AUTO 75 % (41-73); Platelet Count 156 K/mm3 (150-400); RDW Coefficient Variation 15.8 % (11.7-14.2); RDW Standard Deviation 51.8 fL (35.1-46.3); Red Blood Cell Count 3.19 M/mm3 (4.30-5.90); White Blood Cell Count 10.49 K/mm3 (4.00-11.30)
[2019-07-18 03:25] LABS: Anion Gap 8 mmol/L (6-16); Blood Urea Nitrogen 32 mg/dL (8-24); CO2, Blood 24 mmol/L (21-32); Calcium, Blood 7.8 mg/dL (8.5-10.1); Chloride, Blood 110 mmol/L (98-108); Creatinine, Blood 1.39 mg/dL (0.60-1.20); Glomerular Filtration Rate 53 (60-); Glucose, Blood 156 mg/dL (70-99); Magnesium, Blood 1.9 mg/dL (1.6-2.4); Phosphorus, Blood 3.2 mg/dL (2.5-4.9); Potassium, Blood 3.4 mmol/L (3.5-5.5); Sodium, Blood 142 mmol/L (136-145)
--- NOTE | 2019-07-18 04:09 | NUR ---
REASSESSMENT PT CONT INTUBATED AND ON MECH VENT. SEDATION DECREASE OVER THE LAST TWO HOURS AND PUT ON HOLD NOW FOR WEANING. PT OPENING EYES. LUNGS COARSE, SUCTIONED LARGE AMT VIA ET TUBE OF CREAM COLORED SECRECTIONS. LUNGS THAN CLEAR. CXR DONE AND PT REPOSITIONED. ORAL CARE DONE. RESIDUAL 2 ML REFED. RT AT BEDSIDE.
--- NOTE | 2019-07-18 04:30 | NUR ---
PAIN PT AWAKE FOR WEANING TRIAL. NODED HEAD "YES" WHEN ASKED IF IN PAIN. PT MED WITH FENTANYL 25 MCQ. RT AT BEDSIDE. KCL STARTED
--- NOTE | 2019-07-18 06:09 | NUR ---
SHIFT SUMMARY PT CONT INTUBATED AND ON [facility] VENT. CURRENT VENT SETTINGS AC 16 TV 500 PEEP 8 FIO2 45%. FIO2 INCREASED DURING THE NIGHT FROM 35 TO 45% AFTER BEING TURNED TO LEFT SIDE. LUNGS COARSE BUT CLEAR AFTER SUCTIONING LARGE AMT THICK CREAM COLORED SECRECTIONS VIA ET TUBE. LARGE AMT ORAL CLEAR SECRECTIONS NOTED DURING THE NIGHT. HEART RATE REGULAR 50-60'S. BP STABLE. LOPRESSOR HELD LAST NIGHT DUE TO SBP BELOW 100. DEPENDANT EDEMA TO HANDS ELEVATED ON PILLOWS. SCD'S ON. BT+ TUBE FEED VIA OG TUBE AT GOAL RATE WITH MIN RESIDUAL. EVERETT CATH PATENT DRAINING YELLOW URINE. INCONT SMALL BROWN STOOL. TURNED Q2HR. AT BEDSIDE. K 3.4 THIS AM, KCL INFUSING. REPORT TO ON COMING NURSE
--- NOTE | 2019-07-18 08:52 | NUR ---
SUMMARY OF CARE REPORT FROM REHANA ROWE AT 0700. PATIENT WAS GIVEN A SEDATION VACATION. DISCUSSED WITH POSSIBLITY OF HIGHER LEVEL OF ACUTE CARE FOR CARDIAC REASONS. DID NOT BELIEVE WOULD WANT TO PURSUE THAT BASED ON ADVANCE DIRECTIVE HE COMPLETED WITH [facility]. PATIENT AWAKENED AND CONFIRMED WITH THAT HE DID NOT WANT TO CONTINUE. SHE QUESTIONED HIM, WITH DR. AN IN ROOM, HE INDICATED HE NOT ONLY WANTED TO BE DNR, BUT WANTED THE ETT REMOVED TODAY. ORAL CARE PERFORMED, LASIX GIVEN, CARDIAC MEDS PER TUBE. FENTANYL 25 MCG IV GIVEN. WHEN SON ARRIVED, PATIENT WAS EXTUBATED AT 0850 AND PLACED ON 5L NC. RESTRAINTS REMOVED AND ORAL SX BEING PERFORMED BY FAMILY.
--- NOTE | 2019-07-18 10:11 | NUR ---
DR. LEON NOTIFIED OF PATIENT'S WISH FOR COMFORT CARE
--- NOTE | 2019-07-18 10:16 | NUR ---
INITIAL PAL CARE CONSULT CALLED BY RESILIENT TILE INSTALLER WITH REPORT THAT PT REQUESTED EXTUBATION AND COMFORT CARE. DR AN HAD IN DEPTH CONVERSATION WITH PT/ EARLIER THIS AM AND EXTUBATED PER PT'S EXPRESSED WISHES. PT WAS CODED WITH CPR DUE TO NSTEMI/V-FIB. HE HAS A LONG HX OF CAD WITH CABG APPROX 10 YEARS AGO. HE ALSO HAD AN ACUTE GI BLEED. REPORTS PT IS TIRED AND HAS SPOKEN OF HOSPICE RECENTLY, EVEN BEFORE THIS EVENT OCCURED. PT DOES NOT WANT TO GO HOME WITH HOSPICE BUT HOPED HE WOULD WHEN HE WAS EXTUBATED. VARGHESE IS AWAKE. I ASKED QUESTIONS TO DETERMINE ORIENTATION. HE'S SLOW TO RESPOND, ORIENTED AND ABLE TO STATE HIS NEEDS. HE IS VERY WEAK AND UNABLE TO SCRATCH EYEBROW WITHOUT HELP. INTRODUCED MYSELF TO PT AND HIS SON, SUSY. , JANKI, ARRIVED LATER. I CONFIRMED WITH PT THAT HIS WISH IS TO DISCONTINUE MEDICAL TREATMENT OUTSIDE OF SUPPORTIVE/COMFORT MEDICATIONS AND TREATMENTS. HIS SON HAD NOT BEEN PRESENT FOR THE CONVERSATION EARLIER BETWEEN HIS PARENTS AND DR AN. HE WAS APPROPRIATELY TEARFUL, GRIEVING, TALKING WITH HIS DAD TO CONFIRM THAT WAS HIS WISH. ONCE SUSY UNDERSTOOD AND SPOKE TO HIS DAD FURTHER ABOUT HIS WISHES HE TOLD HIS DAD HE SUPPORTED HIM. FAMILY VERY LOVING AND SUPPORTIVE OF ONE ANOTHER. MANY TEARS SHED. HOWEVER, PT HAS MAINTAINED A SENSE OF HUMOR AND ALSO HAD THOSE OF US IN THE ROOM LAUGHING. PT, AND SON REMINISCING AND LAUGHING ABOUT HAPPY MEMORIES. COMFORT CARE EXPLAINED IN DETAIL WITH REGARDS TO NO IV FLUIDS AND NUTRITION, NO MONITORING, VS, LABS, TESTING. CONFIRMED THAT PT'S GOAL IS NOT TO STABILIZE AND GO HOME WITH HOSPICE. HE AND WOULD PREFER COMFORT CARE ONLY AND UNDERSTAND/PREFER HE MAY NOT LEAVE THE HOSPITAL BUT THAT IF PT DOES STABILIZE AND IS ABLE TO TRANSFER HE MAY NEED TO GO HOME OR ANOTHER FACILITY FOR ONGOING EOL CARE. RELAYED ALL OF ABOVE TO PT'S BEDSIDE RN. SHE IS ENTERING IN COMFORT CARE ORDERS AND WILL ORDER COMFORT CARE CART. SHE WILL ALSO SPEAK WITH HOSPITALIST RE: CHANGE IN STATUS PER PT/FAMILY WISHES AND DR AN'S ORDERS. INFORMED PT/FAMILY THAT I WILL RETURN THIS AFTERNOON AND TOMORROW TO ASSESS FOR COMFORT AND NEEDS. PT STATES HE IS NOT UNCOMFORTABLE BUT HE HAS FX RIBS FROM CPR AND SHOWS NONVERBAL INDICATORS OF PAIN WHEN BREATHING AND COUGHING. HE HAS HEAVY SECRETIONS WITH ORAL SUCTION NEAR BY AND HAS BEEN USED BY PT. SPOKE WITH RN RE: COMFORT CARE ORDERS AND RECOMMENDATIONS.
--- NOTE | 2019-07-18 12:20 | NUR ---
PATIENT REFUSES PAIN MEDICATION AT THIS TIME. MONITOR SHOWS NSR WITH HR 75. NO APPARENT DESTRESS. MULTIPLE VISITORS
--- NOTE | 2019-07-18 13:29 | NUR ---
PT DECLINED GETTING UP TO RECLINER. DECLINED PAIN MED. NO DESTRESS. HR 77, BIOX 91%
--- NOTE | 2019-07-18 14:35 | NUR ---
PATIENT BATHED AFTER BOWEL MOVEMENT. LINEN CHANGED. REPORT GIVEN TO Swathi SALCIDO RN WILL MOVE TO ROOM 313
--- NOTE | 2019-07-18 15:15 | NUR ---
PAL CARE COMFORT CARE VISIT MADE PLANNED. PT IS SURROUNDED BY FAMILY MEMBERS AND VISITORS, AWAITING TRANSFER TO ROOM 313 LATER THIS AFTERNOON. HE HAS HAD A BEDBATH AND HAS BEEN MEDICATED WITH IV ANALGESIC PER RN FOR DYSPNEA AND PAIN RELATED TO BROKEN RIBS. HE REPORTS COMFORT AND DISAPPOINTMENT THAT HIS VS ARE STABLE. EDUCATED PT AND FAMILY THAT PT MAY RALLY AND MAY BE STABLE AT THIS TIME. EDUCATED ON PO INTAKE DESIRED, INCLUDING REGULAR HEART MEDICATIONS IF PT IS ABLE TO SAFELY SWALLOW AND WANTS THEM. RXS EXCEPT COMFORT MEDICATIONS WERE D/C'D PER PT'S REQUEST THIS AM. DISCUSSED POSSIBLE D/C HOME OR TO ANOTHER SETTING IF PT REMAINS STABLE LATER IN THE WEEK. VARGHESE IS SPEAKING TO FAMILY ON THE PHONE, THEY'RE PLANNING TO ARRIVE FROM OUT OF AREA TO SEE PT EMPERATRIZ. SON VERBALIZED HIS KALEY IN THE CONVERSATIONS HE'S BEEN ABLE TO HAVE WITH HIS DAD TODAY. HE THOUGHT HE WAS SAYING GOOD BYE FOR THE LAST TIME THIS AM. DISCUSSED PO INTAKE, SAFETY WITH SWALLOWING, RISK OF ASPIRATION. PLANNED WITH FAMILY TO SEE VARGHESE AND THEM IN RM 313 IN AM. CASE CONFERENCED WITH RN FURTHER RE: MEDICATIONS AND COMFORT MEASURES AGAIN BEFORE LEAVING UNIT.
--- NOTE | 2019-07-18 15:33 | NUR ---
PATIENT TX'D IN HIS BED WITH ALL BELONGINGS TO ROOM 313. FAMILY FOLLOWED
--- NOTE | 2019-07-18 16:10 | NUR ---
TRANSFER NOTE RECEIVED REPORT FROM ICU NURSE JEFF. PT TRANSFERED TO MEDICAL FLOOR WNL. FAMILY ARRIVED AT BEDSIDE. COMFORT CART FOR FAMILY TRANSFERED WITH PT. PT AND FAMILY ORIENTED TO UNIT.
--- NOTE | 2019-07-18 17:15 | NUR ---
PT STATUS OFFERED PT FOOD, PT REFUSED. PT REFUSED PAIN MEDICATION. HE DID REQUEST A PEPSI, WHICH HIS FAMILY REPORTS HE IS INGESTING FINE. MANY FAMILY MEMBERS IN ROOM.
--- NOTE | 2019-07-18 18:03 | NUR ---
Spiritual Care intial note: Mr. Vaca states that he is at peace with nearing end-of-life. He and his family are deeply involved with the [facility] community. Pastors and deacons have been making daily visits providing prayer and sacrements. No concerns presented. Spouse was rather dismissive of my support. Complimented pt and family on obvious love and devotion. No concerns or needs presented. I will remain available.
--- NOTE | 2019-07-18 23:02 | NUR ---
PATIENT RESTING IN BED GRAND DAUGHTER STAYING THE NIGHT. CALL LIGHT IN REACH.
--- NOTE | 2019-07-19 04:39 | NUR ---
SHIFT SUMMARY PATIENT IS ON COMFORT CARE. AXO X3 AND BEDFAST. NO ACUTE CHANGES OBSERVED. ADVANCE DIET TOLERATED. PIVS REMAIN INTACT. EVERETT PATENT AND DRAINING. ON 5L O2 N/C. IV DILAUDID 1 MG GIVEN FOR RIB PAIN. ATROPINE DROPS GIVEN PRN FOR SECRETIONS. DENIES SOB AND N/V. SPOUSE AND GRANDDAUGHTER PRESENT AT SHIFT CHANGE. GRAND DAUGHTER STAYED THE NIGHT AT BEDSIDE. COOPERATIVE WITH CARE. CALL LIGHT IN REACH. BED IN LOWEST POSITION. WILL CONTINUE TO MONITOR UNTIL DAY SHIFT NURSE ASSUMES CARE.
--- NOTE | 2019-07-19 08:25 | NUR ---
PT IS A/O X 3, PLEASANT, STATE NO PAIN @ THIS TIME. STATE "I SEE BRIGHT LIGHTS". MAKES GOOD EYE CONTACT, STATE "I SEE YOU FINE". FAMILY @ BEDSIDE, SUPPORTIVE. PT STATE NO APPETITE @ THIS TIME.
--- NOTE | 2019-07-19 10:47 | NUR ---
PT STATE CHEST PAIN, DYSPNEA, ANXIETY. MULT PRN'S GIVEN FOR RELIEF. FAMILY @ BEDSIDE. DR BERMUDEZ & PALLIATIVE CARE RN IN TO SEE THEM, ADDRESS QUESTIONS/CONCERNS. COMFORT CARE CONTINUES.
--- NOTE | 2019-07-19 10:50 | NUR ---
PAL CARE COMFORT CARE ASSESSMENT. PT REPORTS BEING VERY COMFORTABLE. HE RECENTLY RECEIVED MEDICATIONS FOR CP AND ANXIETY PER RN. PT HAS O2 VIA NC IN PLACE. HE IS A MOUTH BREATHER AND MAY NOT BE GETTING A LOT OF THE O2. ASKS TO SPEAK OUTSIDE OF THE ROOM. SHE CONFIRMS THAT THEY DO NOT WANT ANY TESTING R/T GI BLEED, HEART CONDITION OR ANYTHING ELSE. SHE STATES HE IS READY TO GO. WE DISCUSSED WHAT FAMILY MAY BEGIN TO SEE PT BECOMES MORE ACTIVELY DYING. PT DOES NOT APPEAR IMMINENTLY DYING AT THIS TIME AND I EXPRESSED THIS TO . WE DISCUSSED DC PLANNING OF CHOICE. IF THERE WAS AVAILABILITY AT THE [place] [facility], JANKI WOULD PREFER TRANSFER THERE. IF NOT THEY ARE PREPARED TO TAKE PT HOME. I EXPLAINED HOSPICE SERVICES AND THE HELP THEY COULD PROVIDE WITH INTERMITTENT VISITS AND ELECTRIC SHIPYARD OPERATOR AVAILABILITY FOR ASSIST WITH PROBLEM SOLVING AND COMMUNICATING WITH PT'S . DISCUSSED USE OF O2 A COMFORT MEASURE BUT IF O2 DRYING NARES AND MUCOUS MEMBRANES OR IS IRRITATING NOT REQUIRED. INTERVENTIONS TO BE PER PT'S PREFERENCE. WHEN I RETURNED TO ROOM AND ASKED PT HOW HE FELT ABOUT THE O2 HE STATED HE WOULD PREFER NOT TO HAVE IT AND IT WAS REMOVED. RN AND UPDATED ON MY VISIT WITH PT AND . CM ALSO GIVEN FULL UPDATE ON FAMILY PLAN OF CHOICE FOR DISCHARGE PLANNING AND NEED FOR GURNEY TRANSPORT, HOSPITAL BED, [place]T CATH (ALREADY IN PLACE). FAMILY/PT DO NOT HAVE A HOSPICE AGENCY OF CHOICE. INFORMED , JANKI THAT THERE WERE THREE AGENCIES THAT CAN SERVE THEIR LOCATION IN [place]. PERSONAL CARE PROVIDED TO PT AND COOL CLOTH PLACED ON HIS HEAD. HE FELT WARM AND DIAPHORETIC. PT AND FAMILY VERY APPRECIATIVE AND VERY LOVING WITH EACH OTHER.
--- NOTE | 2019-07-19 12:59 | NUR ---
PT HAS BEEN ABLE TO SLEEP SINCE IV DILAUDID & ATIVAN GIVEN. NO S/S PAIN @ THIS TIME, FAMILY @ BEDSIDE STATE HE APPEARS COMFORTABLE. BEDBATH PROVIDED. PT HAD EPISODE OF APNEA DURING ATTENDS CHANGE, FACE TURNED BLUE MOMENTARILY, THEN RESUMED BREATHING, HE DID NOT FULLY AROUSE DURING EVENT. O2 REMOVED @ FAMILY REQUEST EARLIER BY PALLIATIVE CARE RN. WILL CONTINUE TO MX & PROVIDE COMFORT CARE.
--- NOTE | 2019-07-19 13:57 | NUR ---
PT RESTING/SLEEPING, @ BEDSIDE STATE SATISFACTION, STATE APPEARS COMFORTABLE @ THIS TIME. WILL CONTINUE TO MX.
--- NOTE | 2019-07-19 16:05 | NUR ---
PT CONTINUES TO SLEEP. NO S/S PAIN @ THIS TIME. PT'S & SON @ BEDSIDE. WILL CONTINUE TO MX & PROVIDE COMFORT CARE.
--- NOTE | 2019-07-19 17:22 | NUR ---
COMFORT CARE CONTINUES. PT & SON REPORT HE SEEMS PAINFUL. ON ASSESSMENT HE IS MILDLY MOANING, RESTLESS. HE DOES NOT ANSWER TO NAME OR OPEN EYES. FAMILY REQUEST PAIN MEDICATION & ATIVAN, EXPLAINED TO THEM THAT PT WILL BECOME MORE SEDATE. THEY STATE THEY ARE OK WITH THIS, THAT THEIR & PT'S DESIRE IS FOR COMPLETE COMFORT. DILAUDID 1MG & ATIVAN 1MG GIVEN. WILL CONTINUE TO MX.
--- NOTE | 2019-07-19 18:37 | NUR ---
PT PASS AWAY w FAMILY @ BEDSIDE, APPEARED PEACEFUL. FAMILY PROVIDED PRIVACY. DR MCDONOUGH, SALESPERSON FASHION ACCESSORIES & NURSE ZAK NOTIFIED.
--- NOTE | 2019-07-19 22:12 | NUR ---
07/19/191939 Patient was cleared by donor line to be discharged to [facility] in [place]. IV's were removed and rucker was removed. Family was at bedside until mortuary arrived. Family has all belongings and has the patients wedding ring. Tiago Jean from [facility] removed the body at 1939. Family denies having any other questions or needs at this time.
== END 2019-07-19 18:30 ==
LOC: ER 19:16 → ICUW 19:17 → MEDS 22:57 → ICUW 22:57 → MEDS 07-18 15:19
PROVIDERS: Emergency Medicine; Internal Medicine Critical Care Medicine; Internal Medicine Interventional Cardiology; Nurse Practitioner Acute Care; ADMIT Family Medicine
PROC: B211YZZ Fluoroscopy of Multiple Coronary Arteries using Other Contrast (ICD-10-PCS; principal; 2019-07-13)
PROC: 4A023N7 Measurement of Cardiac Sampling and Pressure, Left Heart, Percutaneous Approach (ICD-10-PCS; principal; 2019-07-13)
PROC: 30233N1 Transfusion of Nonautologous Red Blood Cells into Peripheral Vein, Percutaneous Approach (ICD-10-PCS; 2019-07-13)
PROC: 3E033XZ Introduction of Vasopressor into Peripheral Vein, Percutaneous Approach (ICD-10-PCS; 2019-07-14)
PROC: 0BH17EZ Insertion of Endotracheal Airway into Trachea, Via Natural or Artificial Opening (ICD-10-PCS; 2019-07-14)
PROC: 5A1945Z Respiratory Ventilation, 24-96 Consecutive Hours (ICD-10-PCS; 2019-07-14)
PROC: 02HV33Z Insertion of Infusion Device into Superior Vena Cava, Percutaneous Approach (ICD-10-PCS; 2019-07-14)
DX: I21.A1 Myocardial infarction type 2 (principal); K57.31 Diverticulosis of large intestine without perforation or abscess with bleeding; A41.9 Sepsis, unspecified organism; J69.0 Pneumonitis due to inhalation of food and vomit; J96.01 Acute respiratory failure with hypoxia; N17.9 Acute kidney failure, unspecified; E87.2 Acidosis; D62 Acute posthemorrhagic anemia; I47.2 Ventricular tachycardia; I46.2 Cardiac arrest due to underlying cardiac condition; R57.8 Other shock; I49.01 Ventricular fibrillation; Z51.5 Encounter for palliative care; I10 Essential (primary) hypertension; I25.10 Atherosclerotic heart disease of native coronary artery without angina pectoris; E11.9 Type 2 diabetes mellitus without complications; E78.5 Hyperlipidemia, unspecified; Z79.01 Long term (current) use of anticoagulants; Z79.82 Long term (current) use of aspirin; G47.33 Obstructive sleep apnea (adult) (pediatric); I95.9 Hypotension, unspecified
CPT/HCPCS: 31500; 31720; 36415; 36430; 36556; 36600; 51702; 51703; 71045; 74176; 78278; 80048; 80053; 80069; 81001; 82272; 82310; 82330; 82803; 82947; 83605; 83735; 83880; 84100; 84132; 84484; 85014; 85018; 85025; 85045; 85049; 85347; 85384; 85610; 85730; 86850; 86900; 86901; 86923; 87040; 87070; 87205; 93005; 93010; 93306; 93455; 94002; 94003; 96372-59; 96374; 99152; 99153; 99285-25; A9560; C1751; C1769; C1887; C1894; C9113; J0282; J0330; J0696; J1170; J1644; J1940; J2060; J2250; J2405; J2704; J2720; J3010; J3475; J3480; J7030; J7040; J7060; J7120; P9016; P9059; Q9967